=== PATIENT | female | born 1995 | race African-American/Black ===

== ENCOUNTER 2017-05-20 08:30 | Inpatient (IN) | payer MEDICAID ==
[2017-05-20] VITALS (7 sets, daily range): BP systolic 99–138; BP diastolic 38–77
[~2017-05-20] VITALS: Ht 175.3 cm; Wt 95.3 kg
[2017-05-20] MEDS ORDERED: LACT. RINGERS/OXYTOCIN 20UNITS 1,000 ML IV SCH (10:28)
[2017-05-20] MEDS ORDERED: WITCH HAZEL-GLYCERIN PAD TOP PRN (10:30)
[2017-05-20] MEDS ORDERED: LIDOCAINE 2%HCL (LOCAL ANESTH.) INJ 20ML MDV IJ ONE (10:30)
[2017-05-20] MEDS ORDERED: PHISODERM TOP SOLN 240ML BTL TOP PRN (10:30)
[2017-05-20] MEDS ORDERED: DERMOPLAST 60ML BOTTLE TOP PRN (10:30)
[2017-05-20] MEDS ORDERED: NALBUPHINE HCL 10 MG/1ml INJECTION IV PRN (10:30)
[2017-05-20 11:29] LABS: Basophils # (auto) 0.1 uL; Basophils % (auto) 0.4 % (0.0-2.0); Eosinophils # (auto) 0.1 uL; Eosinophils % (auto) 0.5 % (0.0-7.0); Hematocrit 32.6 % (36.0-46.0); Hemoglobin 10.8 g/dL (12.2-16.2); Lymphocytes % (auto) 10.4 % (10.0-50.0); Mean Corpuscular Hemoglobin 30.8 pg (28.0-32.0); Mean Corpuscular Hgb Conc. 33.1 g/dL (32.0-36.0); Mean Platelet Volume 8.3 fL (6.9-10.8); Monocytes # (auto) 1.5 uL; Monocytes % (auto) 7.9 % (0.0-12.0); Neutrophils # (auto) 15.3 uL; Neutrophils % (auto) 80.8 % (37.0-80.0); Nucleated Red Blood Cells % 0.1 %; Platelet Count (auto) 294 10^3/uL (140-450); Red Cell Distribution Width 13.3 % (11.8-14.3)
[2017-05-20] MEDS ORDERED: PROMETHAZINE HCL 25 MG/ML 1ML ONE (11:30)
[2017-05-20] MEDS ORDERED: PROMETHAZINE HCL 25 MG/ML 1ML IV ONE (11:30)
[2017-05-20 11:39] LABS: INR 0.91 (0.9-1.15); Partial Thromboplastin Time 31.8 sec (22.64-33.71); Prothrombin Time 9.9 sec (9.37-12.3)
[2017-05-20 11:49] LABS: Albumin 2.7 g/dL (3.4-5.0); Bilirubin, Total 0.4 mg/dL (0.2-1.0); Potassium 3.6 mmol/L (3.5-5.1); Total Protein 7.5 g/dL (6.4-8.2)
[2017-05-20 12:04] LABS: Urine Bilirubin Negative (Negative); Urine Blood Negative /uL (Negative); Urine Color Yellow (Yellow); Urine Glucose Normal (Normal); Urine Ketone Negative (Negative); Urine Mucus FEW (None Seen); Urine Nitrite POSITIVE (Negative); Urine RBC 1 /hpf (0 - 4); Urine Squamous Epithelial Cell FEW /hpf (<5); Urine pH 6.5 (5.0-8.0)
[2017-05-20] MEDS ORDERED: LIDOCAINE HCL 2 %PF INJ 10ML AMP IJ ONE (12:15)
[2017-05-20] MEDS ORDERED: ePHEDrine SULFATE 50 MG/ML AMP IV ONE (12:15)
[2017-05-20] MEDS ORDERED: fentaNYL CITRATE 100 MCG/2 ML VL IV ONE (12:15)
[2017-05-20] MEDS ORDERED: fentaNYL W ROPIVACAINE 150 ML EPI SCH (12:15)
[2017-05-20] MEDS ORDERED: NALOXONE HCL 0.4 MG/ML VIAL IV ONE (12:15)
[2017-05-20] MEDS: IBUPROFEN 600 MG TAB PO PRN ×2 (17:53→22:10)
[2017-05-20] MEDS: LACTATED RINGER'S 1,000 ML IV SCH ×2 (18:00→18:28)
[2017-05-21 04:25] VITALS: BP 94/53
[2017-05-21 08:30] VITALS: BP 112/60
[2017-05-21] MEDS ORDERED: TETANUS-DIPTH-ACEL PERTUSSIS 0.5ML SYRG IM ONE (09:00)
[2017-05-21] MEDS ORDERED: DOCUSATE CALCIUM 240 MG CAP PO SCH (10:00)
[2017-05-21 12:00] VITALS: BP 120/70
[2017-05-21 16:00] VITALS: BP 120/75
== END 2017-05-21 16:00 | disposition home or self-care (01) | DRG 560 ==
LOC: OBSVTOIN 08:30 → LDRP 08:30
PROVIDERS: ADMIT Specialist; ATTEND Specialist
PROC: 3E0R3BZ Introduction of Anesthetic Agent into Spinal Canal, Percutaneous Approach (ICD-10-PCS; 2017-05-20)
PROC: 00HU33Z Insertion of Infusion Device into Spinal Canal, Percutaneous Approach (ICD-10-PCS; 2017-05-20)
PROC: 10907ZC Drainage of Amniotic Fluid, Therapeutic from Products of Conception, Via Natural or Artificial Opening (ICD-10-PCS; 2017-05-20)
PROC: 10E0XZZ Delivery of Products of Conception, External Approach (ICD-10-PCS; principal; 2017-05-20 15:18)
PROC: 3E0234Z Introduction of Serum, Toxoid and Vaccine into Muscle, Percutaneous Approach (ICD-10-PCS; 2017-05-21)
DX: O76 Abnormality in fetal heart rate and rhythm complicating labor and delivery (principal); Z37.0 Single live birth; Z3A.40 40 weeks gestation of pregnancy; Z23 Encounter for immunization; Z88.0 Allergy status to penicillin
CPT/HCPCS: 36415; 59025; 59409; 62282; 76818; 80053; 80307; 81001; 81002; 85025; 85610; 85730; 86850; 86900; 86901; 90472; 90715; 94760; 96361; 96366; 96374; 96375; J2590; J3010